=== PATIENT | male | born 2005 | race Caucasian/White ===

== ENCOUNTER 2024-11-29 08:22 | Emergency (ER) | payer OTHER, BC ==
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
[2024-11-29 09:27] VITALS: BP 132/76; PULSE 76; RESP 18; TEMP 98.4
== END 2024-11-29 09:24 | disposition home or self-care (01) ==
LOC: EC 08:22
DX: S90.01XA Contusion of right ankle, initial encounter (principal); Z88.0 Allergy status to penicillin; V29.99XA Rider (driver) (passenger) of other motorcycle injured in unspecified traffic accident, initial encounter; Y93.55 Activity, bike riding
CPT/HCPCS: 99284